=== PATIENT | female | born 1970 | race Caucasian/White ===

== ENCOUNTER → 2020-04-17 07:55 | Outpatient (BNVA) | payer OTHER, SELFPAY | PROVIDERS: Family Provider Nurse Practitioner Family; PCP Nurse Practitioner; Referring Provider Nurse Practitioner; Visit Provider Urology | DX: R31.0 Gross hematuria (principal) | CPT/HCPCS: 80053; 81001 ==

== ENCOUNTER → 2020-05-15 09:18 | Outpatient (BNVA) | payer OTHER, SELFPAY | PROVIDERS: Family Provider Nurse Practitioner Family; PCP Nurse Practitioner; Visit Provider Urology | DX: N30.20 Other chronic cystitis without hematuria (principal); N13.39 Other hydronephrosis; R31.0 Gross hematuria | CPT/HCPCS: 81001 ==

== ENCOUNTER → 2020-06-26 14:09 | Outpatient (BNVA) | payer OTHER, SELFPAY | PROVIDERS: Family Provider Nurse Practitioner Family; PCP Nurse Practitioner; Visit Provider Urology | DX: N30.20 Other chronic cystitis without hematuria (principal) | CPT/HCPCS: 81001 ==

== ENCOUNTER → 2020-07-03 14:27 | Outpatient (BNVA) | payer OTHER, SELFPAY | PROVIDERS: Family Provider Nurse Practitioner Family; PCP Nurse Practitioner; Visit Provider Obstetrics & Gynecology | DX: N93.0 Postcoital and contact bleeding (principal); R10.32 Left lower quadrant pain; N94.10 Unspecified dyspareunia | CPT/HCPCS: 88175 ==

== ENCOUNTER → 2020-07-25 13:07 | Outpatient (BNVA) | payer OTHER, SELFPAY | PROVIDERS: Family Provider Nurse Practitioner Family; PCP Nurse Practitioner; Visit Provider Obstetrics & Gynecology | DX: N83.202 Unspecified ovarian cyst, left side (principal); N84.1 Polyp of cervix uteri | CPT/HCPCS: 76830 ==

== ENCOUNTER → 2020-09-02 11:05 | Outpatient (BNVA) | payer OTHER, SELFPAY | PROVIDERS: Family Provider Nurse Practitioner Family; PCP Nurse Practitioner; Visit Provider Obstetrics & Gynecology | DX: N93.0 Postcoital and contact bleeding (principal) | CPT/HCPCS: 81025; 88305 ==

== ENCOUNTER 2020-09-25 13:53 | Outpatient (CLI) | payer OTHER, SELFPAY ==
[2020-09-25 14:35] LABS: Basophils # 0.1 10^3/uL (0.0-0.1); Basophils % 0.9 %; Eosinophils # 0.3 10^3/uL (0.0-0.8); Eosinophils % 5.1 %; Hemoglobin 11.7 g/dL (11.5-15.3); Lymphocytes # 1.8 10^3/uL (0.8-4.8); Lymphocytes % 27.2 %; Mean Corpuscular HGB Conc 31.6 g/dL (30.0-36.0); Mean Corpuscular Hemoglobin 28.5 pg (28.0-34.0); Mean Platelet Volume 10.2 fL (7.4-10.4); Monocytes # 0.4 10^3/uL (0.2-0.9); Neutrophils # 4.06 10^3/uL (1.8-7.7); Neutrophils % 60.4 %; Nucleated Red Blood Cells % 0 %; Platelet Count 307 10^3/cmm (130-400); Red Blood Count 4.11 10^6/uL (4.1-5.3); Red Cell Distribution Width 12.4 % (12.1-15.1); White Blood Count 6.7 10^3/uL (4.0-10.0)
[2020-09-25 14:54] LABS: Alanine Aminotransferase 16 U/L (0-33); Albumin Level 3.6 g/dL (3.5-5.2); Alkaline Phosphatase 77 IU/L (35-105); Anion Gap 13.6 (5-19); Aspartate Amino Transferase 20 U/L (0-32); Blood Urea Nitrogen 13 mg/dL (6-20); C Reactive Protein 1.1 mg/L (0.0-4.9); Calcium 9.1 mg/dL (8.5-10.5); Carbon Dioxide 26 mmol/L (22-29); Chloride 99 mmol/L (98-107); Globulin 2.9 g/dL (1.3-4.6); Glomerular Filtration Rate 75.9 mL/min (90-130); Glucose 95 mg/dL (65-115); Osmolality Calculated 278 mOsm/kg (285-295); Potassium 4.6 mmol/L (3.5-5.1); Sodium 134 mmol/L (136-145); Total Bilirubin 0.2 mg/dL (0.15-1.2); Total Protein 6.5 g/dL (6.6-8.7)
[2020-09-25 15:59] LABS: Erythrocyte Sedimentation Rate 33 mm/hr (0-15)
== END 2020-09-25 13:54 | disposition home or self-care (01) ==
PROVIDERS: PCP Nurse Practitioner; Visit Provider Surgery
DX: R19.7 Diarrhea, unspecified (principal); R10.9 Unspecified abdominal pain
CPT/HCPCS: 80053; 83630; 85025; 85651; 86140; 87493; 87506

== ENCOUNTER → 2020-10-01 13:22 | Outpatient (BNVA) | payer OTHER, SELFPAY | PROVIDERS: PCP Nurse Practitioner; Visit Provider Urology | DX: N30.20 Other chronic cystitis without hematuria (principal); N13.39 Other hydronephrosis | CPT/HCPCS: 81003; 81025 ==

== ENCOUNTER 2020-10-14 12:52 | Outpatient (CLI) | payer OTHER, SELFPAY ==
--- NOTE | 2020-10-14 13:00 | CT_ITS ---
WS: [id number] CT scan of the abdomen and pelvis with Oral and IV contrast. Additional two-dimensional coronal and s agittal reconstruction was performed. 10/14/2020 Clinical Data: R10.9 - Unspecified abdominal pain Comparison: CT abdomen and pelvis, 01/24/2015 DLP: 1092.[address] scans at [facility] use at least one of these dose optimization techniques: automat ed exposure control; mA and/or kV adjustment per patient size (includes targeted exams where dose is matched to clinical indication); or iterative reconstruction. Findings: The lower lungs show no nodules, masses or effusions. The liver, spleen, adrenal glands and pancreas are normal. There are clips in the gallbladder fossa f rom a cholecystectomy. The kidneys show equal bilateral contrast excretion with bilateral renal cysts and dilated renal pelv es. The largest cyst on the left measures 5.65 cm and is unchanged. The abdominal aorta is normal in size. No appendicitis or diverticulitis is seen. Oral contrast is in the stomach, small bowel and colon, an d there is no bowel dilatation. No evidence of colitis is seen. The bladder is unremarkable. No inguinal hernia is seen. There is an IUD in the uterus. The bones of the lower thorax, lumbar spine, pelvis, and hips are normal. CT/CT abdomen pelvis w con* [id number] Impression: Negative for acute intra-abdominal or pelvic abnormalities.
[2020-10-14] MEDS: iohexol 300 mg/mL 50 mL Btl PO (13:43)
[2020-10-14] MEDS: iohexol 300 mg/mL 100 mL Btl IV (14:40)
== END 2020-10-14 12:53 | disposition home or self-care (01) ==
LOC: RADWPI 13:26
PROVIDERS: PCP Nurse Practitioner; Visit Provider Surgery
DX: R10.9 Unspecified abdominal pain (principal)
CPT/HCPCS: 74177; 76830; Q9967

== ENCOUNTER 2021-02-21 10:40 | Outpatient (CLI) | payer OTHER, SELFPAY ==
--- NOTE | 2021-02-21 10:53 | USCV_ITS ---
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 Dr Ezra Hernandez MD FAC (Electronically Signed) Final Date: 21 February 2021 14:45 S
== END 2021-02-21 10:41 | disposition home or self-care (01) ==
LOC: US 10:43
PROVIDERS: PCP Nurse Practitioner; Visit Provider Nurse Practitioner
DX: I73.9 Peripheral vascular disease, unspecified (principal); M79.604 Pain in right leg; M79.605 Pain in left leg
CPT/HCPCS: 93922

== ENCOUNTER → 2021-11-18 14:57 | Outpatient (BNVA) | payer OTHER, SELFPAY | PROVIDERS: PCP Nurse Practitioner; Referring Provider Specialist; Visit Provider Specialist | DX: G43.811 Other migraine, intractable, with status migrainosus (principal) | CPT/HCPCS: 99204 ==

== ENCOUNTER 2022-02-03 15:02 | Outpatient (CLI) | payer OTHER, SELFPAY ==
--- NOTE | 2022-02-03 15:11 | MR_ITS ---
WS: [id number] MRI BRAIN WITHOUT CONTRAST HISTORY: R51.9 - Headache, unspecified COMPARISON: None available. TECHNIQUE: Diffusion imaging, multiplanar T1, T2 and FLAIR imaging obtained. No evidence for acute infarct or hemorrhage. Galvan-white matter differentiation is normal. No significant atrophy. There are a few scattered T2 and FLAIR signal hyperintensities in the cerebel lum and cerebrum. Several left-sided cerebellar areas of increased signal. Additional prior ischemic changes adjacent to the occipital and temporal horns. Ventricles and extra-axial spaces are normal. No inferior displacement of the cerebellar tonsils. Clivus and pituitary gland are normal. Dural venous sinuses and [place] demonstrate no abnormality on this unenhanced studies. Paranasal sinuses: Clear. Mastoid air cells: Normal. Calvarium and scalp: Intact. MR/MR head wo con* [id number] IMPRESSION: 1. No acute infarct or mass effect. 2. Scattered T2 and FLAIR signal hyperintensities in the LEFT cerebellum and b ilaterally differential includes small vessel ischemic disease and demyelinatin g disease. Follow-up postcontrast MRI evaluation may be helpful to evaluate for enhancement in any of these lesions.
== END 2022-02-03 15:03 | disposition home or self-care (01) ==
LOC: RAD 15:05
PROVIDERS: PCP Nurse Practitioner; Visit Provider Specialist
DX: R51.9 Headache, unspecified (principal)
CPT/HCPCS: 70551

== ENCOUNTER → 2022-02-23 10:29 | Outpatient (BNVA) | payer OTHER, SELFPAY | PROVIDERS: PCP Nurse Practitioner; Visit Provider Specialist | DX: G43.711 Chronic migraine without aura, intractable, with status migrainosus (principal); G37.9 Demyelinating disease of central nervous system, unspecified | CPT/HCPCS: 99214 ==

== ENCOUNTER → 2022-04-14 16:02 | Outpatient (BNVA) | payer OTHER, SELFPAY | PROVIDERS: PCP Nurse Practitioner; Visit Provider Urology | DX: N30.20 Other chronic cystitis without hematuria (principal); N39.41 Urge incontinence | CPT/HCPCS: 81003; 99213 ==

== ENCOUNTER 2022-05-05 08:53 | Outpatient (CLI) | payer OTHER, SELFPAY ==
--- NOTE | 2022-05-05 09:06 | MM_ITS ---
WS: [id number] SCREENING DIGITAL BREAST TOMOSYNTHESIS MAMMOGRAM WITH CAD HISTORY: SCREENING COMPARISON: 02/25/2021, 11/29/2018 Bilateral CC and MLO with tomosynthesis and synthetic mammography submitted. Computer aided detection analyzed. Breast composition: The breasts are heterogeneously dense, which may obscure small masses. Dense fibr oglandular tissue in the upper outer quadrant of the LEFT breast has slowly decreased over time. Ther e is a very subtle area of architectural distortion in the upper outer quadrant of the LEFT breast, 2 -3 o'clock which needs further evaluation. This is best seen on the tomosynthesis images. MM/[place] [id number] IMPRESSION: BI-RADS: 0-Incomplete: Need additional imaging evaluation FOLLOW UP: Need Additional Imaging LEFT breast: Spot compression views (CC and MLO). True ML. Ultrasound to follow if abnormality persists.
== END 2022-05-05 08:54 | disposition home or self-care (01) ==
PROVIDERS: PCP Nurse Practitioner; Visit Provider Nurse Practitioner
DX: Z12.31 Encounter for screening mammogram for malignant neoplasm of breast (principal)
CPT/HCPCS: 77063; 77067

== ENCOUNTER 2022-05-26 12:33 | Outpatient (CLI) | payer OTHER, SELFPAY ==
--- NOTE | 2022-05-26 13:15 | MR_ITS ---
WS: [id number] MRI HEAD WITH CONTRAST TECHNIQUE: Sagittal T1, T2 axial, T2 axial FLAIR, axial susceptibility weighted imaging, axial diffus ion weighted images, and coronal T2 images were obtained. Pre and post-T1 axial and post T1 coronal i mages. ADC and FSPGR images. CLINICAL INFORMATION: G43.711 - Chronic migraine without aura, intractable, wit... COMPARISON: MRI February 03, 2022 FINDINGS: No evidence of restricted diffusion to suggest acute ischemia. Ventricular system and basal cisterns are patent. Stable focus of T2 hyperintensity in the RIGHT parietal white matter. Hazy periventricula r T2 signal abnormality more prominent about the occipital horns. Stable foci of T2 signal abnormalit y LEFT cerebellum. 9 mm hazy focus of signal abnormality about the 4th ventricle. Normal corpus callosum. Normal vascular flow voids at the skull base. No extra-axial fluid collections. No evidence of mass o r mass effect. Paranasal sinuses and mastoid air cells well aerated. Normal orbits. No hemosiderin on the susceptibly weighted images. Normal optic chiasm and pituitary infundibulum. Te mporal lobes and hippocampal formations are normal in appearance. No abnormal gadolinium enhancement. No enhancing intracranial lesions. Normal posterior nasopharynx. Normal dural venous sinuses. Normal dural venous sinuses. MR/MR head wo/w con [id number] IMPRESSION: 1. No evidence of restricted diffusion to suggest acute ischemia. 2. Stable small focus of T2 hyperintensity in the RIGHT parietal periventricul ar white matter with hazy signal normality about the occipital horns. Stable in fratentorial LEFT cerebellar patchy foci. 3. Findings are nonspecific in a patient this age but can be seen with hyperte nsion, diabetes, migraine headaches, and demyelinating disease. Periventricular lesion about the 4th ventricle in particular is suspicious for demyelinating d isease but nonspecific. 4. No abnormal gadolinium enhancement. 5. No hemosiderin on susceptibly weighted images. 6. No significant parenchymal volume loss. 7. No significant changes compared to previous.
[2022-05-26] MEDS: gadobenate dimeglumine 5 mL vial IV (13:55)
== END 2022-05-26 12:34 | disposition home or self-care (01) ==
PROVIDERS: PCP Nurse Practitioner; Visit Provider Specialist
DX: G43.711 Chronic migraine without aura, intractable, with status migrainosus (principal); G37.9 Demyelinating disease of central nervous system, unspecified
CPT/HCPCS: 70553

== ENCOUNTER → 2022-05-27 10:17 | Outpatient (BNVA) | payer OTHER, SELFPAY | PROVIDERS: PCP Nurse Practitioner; Visit Provider Specialist | DX: Z77.22 Contact with and (suspected) exposure to environmental tobacco smoke (acute) (chronic) (principal); G43.711 Chronic migraine without aura, intractable, with status migrainosus; G37.9 Demyelinating disease of central nervous system, unspecified | CPT/HCPCS: 99214 ==

== ENCOUNTER 2022-05-29 08:56 | Outpatient (CLI) | payer OTHER, SELFPAY ==
--- NOTE | 2022-05-29 | US_ITS ---
ADDITIONAL VIEWS LEFT MAMMOGRAM with tomosynthesis. LEFT BREAST ULTRASOUND HISTORY: ABNORMAL MAMMO COMPARISON: 05/05/2022 and 02/26/200020/11 and 12/06/2019 LEFT MAMMOGRAM: Spot compression views and true ML with tomosynthesis and sympathetic mammography. The asymmetry nearly completely resolves in the upper outer quadrant. The area of distortion becomes less apparent but there is still dense fibroglandular tissue. No discrete mass. LEFT BREAST ULTRASOUND 2-D and color Doppler imaging submitted. Ultrasound directed to the upper outer quadrant of the LEFT breast. Very dense fibroglandular tissue is identified. There is no solid mass or shadowing. No evidence for distortion or skin thickening. IMPRESSION: BI-RADS: 2-Benign FOLLOW UP: 1 Year Follow-up MAIDA
--- NOTE | 2022-05-29 09:05 | MM_ITS ---
WS: [id number] ADDITIONAL VIEWS LEFT MAMMOGRAM with tomosynthesis. LEFT BREAST ULTRASOUND HISTORY: ABNORMAL MAMMO COMPARISON: 05/05/2022 and 02/26/200020/11 and 12/06/2019 LEFT MAMMOGRAM: Spot compression views and true ML with tomosynthesis and sympathetic mammography. The asymmetry nearly completely resolves in the upper outer quadrant. The area of distortion becomes less apparent but there is still dense fibroglandular tissue. No discrete mass. LEFT BREAST ULTRASOUND 2-D and color Doppler imaging submitted. Ultrasound directed to the upper outer quadrant of the LEFT breast. Very dense fibroglandular tissue is identified. There is no solid mass or shadowing. No evidence for distortion or skin thickening. MM/[place] [id number] IMPRESSION: BI-RADS: 2-Benign FOLLOW UP: 1 Year Follow-up
== END 2022-05-29 08:57 | disposition home or self-care (01) ==
PROVIDERS: PCP Nurse Practitioner; Visit Provider Nurse Practitioner
DX: R92.8 Other abnormal and inconclusive findings on diagnostic imaging of breast (principal)
CPT/HCPCS: 76642; 77061

== ENCOUNTER → 2022-08-20 14:59 | Outpatient (BNVA) | payer OTHER, SELFPAY | PROVIDERS: PCP Nurse Practitioner; Visit Provider Nurse Practitioner Women's Health | DX: E78.00 Pure hypercholesterolemia, unspecified (principal); N93.9 Abnormal uterine and vaginal bleeding, unspecified; N88.8 Other specified noninflammatory disorders of cervix uteri | CPT/HCPCS: 84443; 84702; 85025; 88305 ==

== ENCOUNTER 2022-08-27 10:08 | Outpatient (CLI) | payer OTHER, SELFPAY ==
[2022-08-27 15:34] LABS: HCG Quantitative 8.27 mIU/mL
== END 2022-08-27 10:09 | disposition home or self-care (01) ==
LOC: LAB 10:11
PROVIDERS: PCP Nurse Practitioner; Visit Provider Nurse Practitioner Women's Health
DX: Z32.00 Encounter for pregnancy test, result unknown (principal)
CPT/HCPCS: 36415; 84702

== ENCOUNTER → 2022-08-31 13:47 | Outpatient (BNVA) | payer OTHER, SELFPAY | PROVIDERS: PCP Nurse Practitioner; Visit Provider Nurse Practitioner Women's Health | DX: N93.9 Abnormal uterine and vaginal bleeding, unspecified (principal) | CPT/HCPCS: 76830; 82670; 83001; 84702 ==

== ENCOUNTER 2022-10-14 09:11 | Day surgery (SDC) | payer OTHER, SELFPAY ==
[2022-10-12 08:10] VITALS: BMI 25.7
--- NOTE | 2022-10-12 08:29 | ANES.PREANE2 ---
Pre-Anesthetic Assessment Height/Weight: Height 1.63 m Weight 68.039 kg Operation Date: 10/14/22 10:45 Proposed Procedures p Hysteroscopy, dilation and curettage with Myosure 08235, 74466,24816 N95.0(Not Applicable) - Tab Gabriel MD s Dilation And Curettage (D&C)(Not Applicable) - Tab Gabriel MD Familial anesthetic complications: PONV - Scopolamine patch helped Social No alcohol and No tobacco Exam alert, oriented x 3, clear to auscultation bilaterally and regular rate & rhythm Airway Mallampati: Class II Dentition: other (crowns, missing tooth) Pulmonary Asthma hydronephrosis on losartan GI Gastroesophageal Reflux Disease ibs Anesthetic Plan ASA status: 3 Anesthesia: General Risk of > 500 ml blood loss (7ml/kg in children): No Medications/Allergies Home Medications Medication Instructions Recorded Confirmed Last Taken Type cholecalciferol (vitamin D3) 50 50 mcg PO DAILY 04/17/20 10/12/22 10/11/22 History mcg (2,000 unit) capsule ferrous fumarate 325 mg (106 mg 325 mg PO DAILY 04/17/20 10/12/22 10/10/22 History iron) tablet omeprazole 20 mg capsule,delayed 20 mg PO DAILY 04/17/20 10/12/22 10/10/22 History release albuterol sulfate 90 mcg/actuation 2 puff inhalation Q6H PRN 07/03/20 10/12/22 10/09/22 History aerosol inhaler (ProAir HFA) Shortness Of Breath losartan 50 mg-hydrochlorothiazide 1 tab PO DAILY 11/12/21 10/12/22 10/12/22 07:00 History 12.5 mg tablet azelastine 137 mcg (0.1 %) nasal 1 spray intranasal ONCE PRN 04/14/22 10/12/22 10/11/22 History spray aerosol Allergy Symptoms magnesium glycinate 200 mg PO DAILY 04/14/22 10/12/22 10/11/22 History polyethylene glycol 3350 17 gram 17 g PO DAILY PRN Constipation 04/14/22 10/12/22 09/21/22 History oral powder packet (Miralax) zinc 50 mg tablet 50 mg PO DAILY PRN Congestion 04/14/22 10/12/22 Unknown History amitriptyline 10 mg tablet 10 mg PO DAILY #30 tabs 05/27/22 10/12/22 10/08/22 Rx aspirin 81 mg tablet,delayed 81 mg PO DAILY 09/08/22 10/12/22 10/05/22 History release (Adult Aspirin Regimen) Allergies Allergy/AdvReac Type Severity Reaction Status Date / Time Corticosteroids Allergy Rash Verified 10/12/22 08:05 (Glucocorticoids) prednisone Allergy ALGY-Rash Verified 10/12/22 08:05 [facility] Anesthesia Medical History Asthma Diagnosed in 1999 and well-controlled with medication Chronic cystitis Hydronephrosis Chronic with no evidence of obstruction on multiple Lasix renogram -Follows up with Dr. 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 Cox. Hypercholesteremia Diagnosed in 2009 and controlled with medications managed by PMD Left flank pain Extensive work-up including 2 Lasix renogram's showing mild dilation but no evidence of obstruction. Pain more typical for musculoskeletal source based on its features. 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 No evidence of symptoms related to it. Urgency incontinence Surgical History H/O elbow surgery 2015 for right-sided tennis elbow H/O eye surgery 2004-LASIK surgery bilaterally H/O knee surgery 2004-right knee arthroscopic S/P cholecystectomy 2017-laparoscopic procedure by Dr. Luis Family History Father Hypertension Hyperlipidemia Mother Diabetes Hypertension Heart disease Brother Diabetes Grandmother Ovarian cancer paternal, diagnosed in her 80s Denies family history of Colon cancer Breast cancer Uterine cancer Thyroid condition Stroke Social History Smoking and tobacco status: never smoked Data Anesthesia Cardiac Studies: No Data to Display
[2022-10-14] VITALS (11 sets, daily range): BP systolic 111–155; BP diastolic 64–97; PULSE 86–106; RESP 16–20; TEMP 36.4–37.1; O2SAT 98–100
[2022-10-14] MEDS: scopolamine 1.5 Patch 1 PATCH TRANSDERMA (09:39)
[2022-10-14 09:44] LABS: OR HCG Qualitative Urine Negative (Negative)
--- NOTE | 2022-10-14 09:51 | P.ANESUD_ITS ---
Pre-Anesthetic Update Pre-Anesthetic Assessment: Date of Surgery/Procedure: 10/14/22 Preop Malika gnosis: Postmenopausal bleeding & endocervical polyp Proposed Procedure: Operation Date: 10/14/22 10:45 Proposed Procedures p Hysteroscopy, dilation and curettage with Myosure 61977, 20261,21866 N95.0(Not Applicable) - Tab Gabriel MD s Dilation And Curettage (D&C)(Not Applicable) - Tab Gabriel MD Any changes to Pre-Anesthetic Assessment?: No Last Intake: Intake Last Liquid Date 10/13/22 Last Liquid Time 17:30 Last Solid Date 10/13/22 Last Solid Time 17:30 Vitals: Temperature 98.8 F 10/14/22 09:22 Temperature Source Temporal Artery S can 10/14/22 09:22 Pulse Rate 106 H 10/14/22 09:22 Respiratory Rate 17 10/14/22 09:22 Blood Pressure 123/97 10/14/22 09:22 Blood Pressure Ana n 105 10/14/22 09:22 Pulse Oximetry 98 10/14/22 09:22 Oxygen Delivery Me thod 10/14/22 09:25 Exam: Pre-Anes Outpt Exam: alert, oriented x 3, clear to auscultation bilaterally and regular rate & rhythm Cardiac Studies: No Data to Display
[2022-10-14] MEDS: sodium chloride 0.9% 1,000 ML 30 ML IV (09:55)
--- NOTE | 2022-10-14 09:56 | W.PM.OPSUD ---
Surgery/Procedure H&P Update DATE OF PROCEDURE: October 14, 2022 DATE H&P PERFORMED: 10/12/22 H&P UPDATE INFORMATION: I have reviewed H&P completed within last 30 days, I have examined patient prior to procedure and No changes to prior documentation PREOP DIAGNOSIS: Postmenopausal bleeding & endocervical polyp PLANNED PROCEDURE: Operation Date: 10/14/22 10:45 Proposed Procedures p Hysteroscopy, dilation and curettage with Myosure 63906, 47219,40270 N95.0(Not Applicable) - Tab Gabriel MD s Dilation And Curettage (D&C)(Not Applicable) - Tab Gabriel MD
[2022-10-14 10:02] LABS: Basophils % 0.6 %; Eosinophils # 0.2 10^3/uL (0.0-0.8); Hematocrit 39.5 % (37.0-47.0); Hemoglobin 12.8 g/dL (11.5-15.3); Lymphocytes # 1.6 10^3/uL (0.8-4.8); Lymphocytes % 23.7 %; Mean Corpuscular HGB Conc 32.4 g/dL (30.0-36.0); Mean Corpuscular Hemoglobin 28.7 pg (28.0-34.0); Mean Corpuscular Volume 88.6 fl (81-99); Mean Platelet Volume 10.2 fL (7.4-10.4); Monocytes # 0.3 10^3/uL (0.2-0.9); Monocytes % 4.5 %; Neutrophils # 4.48 10^3/uL (1.8-7.7); Neutrophils % 67.7 %; Nucleated Red Blood Cells % 0 %; Platelet Count 330 10^3/cmm (130-400); Red Blood Count 4.46 10^6/uL (4.1-5.3); Red Cell Distribution Width 12.9 % (12.1-15.1); White Blood Count 6.6 10^3/uL (4.0-10.0)
[2022-10-14 10:22] LABS: Alanine Aminotransferase 34 U/L (0-33); Albumin Level 4.3 g/dL (3.5-5.2); Alkaline Phosphatase 111 U/L (35-105); Anion Gap 15.5 (5-19); Aspartate Amino Transferase 28 U/L (0-32); Blood Urea Nitrogen 13 mg/dL (6-20); Calcium 9.9 mg/dL (8.5-10.5); Carbon Dioxide 25 mmol/L (22-29); Chloride 103 mmol/L (98-107); Globulin 3.4 g/dL (1.3-4.6); Glomerular Filtration Rate 65.5 mL/min (90-130); Glucose 85 mg/dL (65-115); Osmolality Calculated 287 mOsm/kg (285-295); Potassium 4.5 mmol/L (3.5-5.1); Sodium 139 mmol/L (136-145); Total Bilirubin 0.3 mg/dL (0.15-1.2); Total Protein 7.7 g/dL (6.6-8.7)
[2022-10-14 11:12] LABS: Add Urine Microscopic? YES; Bilirubin Urine Neg (Negative); Blood Urine 3+ (Negative); Glucose Urine UA Norm (Normal); Ketones Urine Negative (Negative); Leukocyte Esterase Urine 1+ (Negative); Nitrate Urine Negative (Negative); Protein Urine 2+ (Negative); Specific Gravity, Urine 1.005 (1.005-1.030); Urine Appearance Hazy (CLEAR); Urine Color Yellow (Yellow); Urobilinogen Urine Neg (Negative); pH Urine 7 (5-7)
[2022-10-14 11:14] LABS: Add Urine Culture? Yes; RBC Urine 40-50 /hpf (0-2); Squamous Epithelial Cell Urine 0-4 /hpf (0-5); WBC Urine RARE /hpf (0-5)
[2022-10-14] MEDS: ceFAZolin 2,000 MG in sodium chloride 0.9% (plus) 50 ML 100 MG IV (11:23)
--- NOTE | 2022-10-14 12:07 | PM.OP ---
Operative Report Date of procedure: October 14, 2022 Pre-op diagnosis: Preop Diagnosis Postmenopausal bleeding & endocervical polyp Post-op diagnosis: Postmenopausal bleeding. Endometrial polyp Post-op findings: Endometrial polyp attached to the anterior endometrial wall. Procedure done: Hysteroscopy. Polypectomy via MyoSure Specimens removed/disposition: Endometrial polyp Surgeon: Tab Gabriel MD Estimated blood loss (mL): 5 IV fluids (mL): 500 Complications: None Findings: Endometrial polyp Brief History: Mrs. Connolly 52-year-old female with postmenopausal bleeding. Ultrasound suggesting of polyp. Procedure: After informed consent, the risks included but were not limited to bleeding, infection, injury to internal organs. The patient was counseled on a possible laparotomy and on the potential need for hysterectomy. The patient expressed understanding of the risks involved, all questions were answered, and the patient consented to the procedure. The patient was taken to the operating room where general anesthesia was administered. She was placed in the dorsal lithotomy position and prepped and draped in sterile fashion. A time out procedure was performed. The patient was examined under anesthesia and found to have a normal uterus with normal adnexa. A sterile weight speculum was placed in the vagina. The uterus was then gently sounded to 7 cm, and the cervix was dilated. The 0 degrees MyoSure hysteroscope was advanced gently to the uterine fundus while visualizing the monitor. Survey of the uterine cavity showed: Endometrial polyp on anterior wall, the fundus shows atrophic endometrium; left ostium was visualized, and lateral wall with atrophic in the mid; right ostium visualized, and lateral wall with atrophic in the mid; anterior and posterior deleon are with atrophic endometrium; endocervical canal is normal. The MyoSure device was advanced and the direct visualization the polyp was morcellated without complication. At the end of morcellation the fluid deficit was 70 mL and was estimated at approximately 50 mL were on the floor. There was minimal bleeding noted and the tenaculum removed with goad hemostasis noted. The patient tolerated the procedure well. The patient was taken to the recovery area in stable condition.
[2022-10-14] MEDS: ketorolac 30 mg/mL INJ 15 MG IVP (12:26)
--- NOTE | 2022-10-14 16:35 | ANE.PACU2 ---
Inpatient post-anesthesia follow up: Airway intact: Yes Vital signs: Temperature 97.8 F Pulse Rate 86 Respiratory Rate 18 Blood Pressure 148/77 Pulse Oximetry 100 Oxygen Delivery Me thod Room Air Oxygen Flow Rate Fraction of Inspir ed Oxygen Hydration adequate: Yes Nausea and vomiting: No Pain level: 1 Mental status: Baseline
== END 2022-10-14 13:43 | disposition home or self-care (01) ==
PROVIDERS: PCP Nurse Practitioner; Visit Provider Obstetrics & Gynecology
PROC: 0UDB8ZZ Extraction of Endometrium, Via Natural or Artificial Opening Endoscopic (ICD-10-PCS; CPT 58558; principal; 2022-10-14 10:35)
PROC: (CPT 58120; 2022-10-14 10:35)
DX: N95.0 Postmenopausal bleeding (principal); N84.1 Polyp of cervix uteri; K21.9 Gastro-esophageal reflux disease without esophagitis; Z79.82 Long term (current) use of aspirin; E78.00 Pure hypercholesterolemia, unspecified
CPT/HCPCS: 58558; 36415; 80053; 81001; 81025; 84703; 85025; 86850; 86900; 87077; 87086; 87186; 88305; J0690; J1885; J2405; J2704; J3010; J7030

== ENCOUNTER → 2022-10-21 08:21 | Outpatient (BNVA) | payer OTHER, SELFPAY | PROVIDERS: PCP Nurse Practitioner; Visit Provider Specialist | DX: G43.709 Chronic migraine without aura, not intractable, without status migrainosus (principal) | CPT/HCPCS: 99212 ==

== ENCOUNTER → 2022-11-04 14:45 | Outpatient (BNVA) | payer OTHER, SELFPAY | PROVIDERS: PCP Nurse Practitioner; Visit Provider Nurse Practitioner Women's Health | DX: R30.0 Dysuria (principal) | CPT/HCPCS: 81000; 87086 ==

== ENCOUNTER → 2023-01-12 10:30 | Outpatient (BNVA) | payer OTHER, SELFPAY | PROVIDERS: PCP Nurse Practitioner; Visit Provider Obstetrics & Gynecology | DX: N95.0 Postmenopausal bleeding (principal) | CPT/HCPCS: 76830 ==

== ENCOUNTER 2023-07-13 10:51 | Outpatient (CLI) | payer OTHER, SELFPAY ==
--- NOTE | 2023-07-13 10:53 | MM_ITS ---
WS: [id number] VIEWS: MLO and CC views both breasts. 3D digital tomosynthesis is also included in this exam. Comparison made with prior exam of 10/12/2017, 11/29/2018, 12/06/2019, 02/25/2021, 05/05/2022.. Findings: No sign of suspicious mass, tumor calcification or architectural distortion in either breast. A 7 mm ovoid nodule with fatty hilum seen in the anterior upper outer quadrant of the RIGHT breast probably an intramammary lymph node. This is seen only on the cc views and seen best on the tomograms. A 6-mon th follow-up RIGHT mammogram with tomography would be recommended for follow-up. The breasts are hete rogeneously dense which may obscure small masses. Impression: MM/[place] [id number] BI-RADS: 3-Probably Benign FOLLOW-UP: 6 Month Follow-up This mammogram was also analyzed by the Computer Aided Detection System [employer].
== END 2023-07-13 10:52 | disposition home or self-care (01) ==
LOC: MOBLMAM 10:51
PROVIDERS: PCP Nurse Practitioner; Visit Provider Nurse Practitioner
DX: Z12.31 Encounter for screening mammogram for malignant neoplasm of breast (principal)
CPT/HCPCS: 77063; 77067

== ENCOUNTER → 2023-10-20 11:05 | Outpatient (BNVA) | payer OTHER, SELFPAY | PROVIDERS: PCP Nurse Practitioner; Visit Provider Specialist | DX: G43.711 Chronic migraine without aura, intractable, with status migrainosus (principal) | CPT/HCPCS: 99213 ==

== ENCOUNTER → 2023-12-08 15:10 | Outpatient (BNVA) | payer OTHER, SELFPAY | PROVIDERS: PCP Nurse Practitioner; Referring Provider Nurse Practitioner; Visit Provider Nurse Practitioner Women's Health | DX: N95.0 Postmenopausal bleeding (principal); Z01.419 Encounter for gynecological examination (general) (routine) without abnormal findings; N95.1 Menopausal and female climacteric states | CPT/HCPCS: 87624 ==

== ENCOUNTER → 2023-12-27 12:31 | Outpatient (BNVA) | payer OTHER, SELFPAY | PROVIDERS: PCP Nurse Practitioner; Visit Provider Nurse Practitioner Women's Health | DX: N95.0 Postmenopausal bleeding (principal) | CPT/HCPCS: 76830 ==

== ENCOUNTER 2024-01-13 10:20 | Outpatient (CLI) | payer OTHER, SELFPAY ==
--- NOTE | 2024-01-13 10:24 | MM_ITS ---
WS: [id number] RIGHT 3D TOMOSYNTHESIS DIGITAL MAMMOGRAPHY WITH CAD CLINICAL INFORMATION: 6MFU ABNORMAL MAMMO HISTORY: 6-month follow-up COMPARISON: 07/13/2023 TECHNIQUE: 3 views of the right breast were obtained. FINDINGS: Scattered fibroglandular densities of the right breast. Again seen is a 6 mm nodule upper outer RIGHT breast best seen on the cc view. This is unchanged compared to previous. Ultrasound is pending. ULTRASOUND BREAST RIGHT TECHNIQUE: Ultrasound right breast focused area of concern. CLINICAL INFORMATION: 6MFU ABNORMAL MAMMO FINDINGS: Ultrasound RIGHT breast upper outer quadrant. Small lymph node is visualized in the upper outer quadr ant at the 11 o'clock position 2 cm from the nipple likely corresponding to the ovoid nodule seen on the mammogram. This measures approximately 6 x 4 x 3 mm with normal fatty hilum. No other suspicious abnormalities. No suspicious lesions to target for biopsy. Recommend return to annual screening mammo graphy. IMPRESSION: MM/[place] [id number] BI-RADS: 2-Benign FOLLOW UP: 1 Year Follow-up Recommend return to annual screening mammography.
== END 2024-01-13 10:21 | disposition home or self-care (01) ==
LOC: RAD 10:20
PROVIDERS: PCP Nurse Practitioner; Visit Provider Nurse Practitioner
DX: R92.321 Mammographic fibroglandular density, right breast (principal)
CPT/HCPCS: 76642; 77061; G0279

== ENCOUNTER 2024-08-17 15:57 | Outpatient (CLI) | payer OTHER, SELFPAY ==
[2024-08-17 16:48] LABS: Bilirubin Urine Negative (Negative); Blood Urine 2+ (Negative); Glucose Urine UA 2+ (Normal); Ketones Urine Negative (Negative); Leukocyte Esterase Urine Negative (Negative); Nitrate Urine Negative (Negative); Protein Urine 1+ (Negative); Specific Gravity, Urine 1.003 (1.005-1.030); Urine Appearance Clear (CLEAR); Urine Color Yellow (Yellow); Urobilinogen Urine 0.2 mg/dL (Negative); pH Urine 5.5 (5-7)
[2024-08-17 16:53] LABS: Bacteria Urine None Seen /hpf; Hyaline Casts Urine 0-4 /lpf; Squamous Epithelial Cell Urine 0-5 /hpf (0-5); WBC Urine 0-5 /hpf (0-5)
[2024-08-17 16:59] LABS: Add Urine Culture? Yes
[2024-08-17 17:40] LABS: Anion Gap 14.8 (5-19); Blood Urea Nitrogen 18 mg/dL (6-20); Calcium 9.1 mg/dL (8.5-10.5); Carbon Dioxide 25 mmol/L (22-29); Chloride 101 mmol/L (98-107); Glomerular Filtration Rate 65.2 mL/min (90-130); Glucose 117 mg/dL (65-115); Phosphorus 4.4 mg/dL (2.5-4.5); Potassium 3.8 mmol/L (3.5-5.1); Sodium 137 mmol/L (136-145)
[2024-08-17 18:00] LABS: Creatinine Urine, Random 16 mg/dL (28-217); Microalbumin Random Urine 16 ug/dL (0-20)
[2024-08-17 18:03] LABS: Microalbum Creatinine Ratio Ur 1000 mg/dL (0-20)
== END 2024-08-17 15:58 | disposition home or self-care (01) ==
LOC: LAB 15:59
PROVIDERS: PCP Nurse Practitioner; Visit Provider Registered Nurse
DX: N18.2 Chronic kidney disease, stage 2 (mild) (principal); R80.1 Persistent proteinuria, unspecified
CPT/HCPCS: 36415; 80069; 81001; 82044

== ENCOUNTER 2024-10-26 14:16 | Outpatient (CLI) | payer OTHER, SELFPAY ==
--- NOTE | 2024-10-26 14:19 | MR_ITS ---
WS: [id number] MRI HEAD WITH CONTRAST TECHNIQUE: Sagittal T1, T2 axial, T2 axial FLAIR, axial susceptibility weighted imaging, axial diffus ion weighted images, and coronal T2 images were obtained. Pre and post-T1 axial and post T1 coronal i mages. ADC and FSPGR images. CLINICAL INFORMATION: FREQUENT MIGRAINE, TYPICALLY R SIDE COMPARISON: MRI 2021 FINDINGS: No evidence of restricted diffusion to suggest acute ischemia. Ventricular system and basal cistern s are patent. Mild patchy supratentorial white matter changes appear stable compared to 2021. Few pat shari lesions in the LEFT cerebellum similar in appearance. No new lesions. Normal vascular flow voids at the skull base. No extra-axial fluid collections. No evidence of mass o r mass effect. Paranasal sinuses and mastoid air cells are well aerated. Normal posterior nasopharynx . No hemosiderin on the susceptibly weighted images. Normal optic chiasm and pituitary infundibulum. No abnormal gadolinium enhancement. No other acute findings. MR/MR head wo/w con [id number] IMPRESSION: 1. No evidence of restricted diffusion to suggest acute ischemia. 2. Mild patchy supratentorial white matter changes appear stable compared to p revious. 3. Stable small T2 hyperintense foci in the LEFT cerebellum and about the four th ventricle. 4. No abnormal gadolinium enhancement. 5. Overall no significant changes compared to previous.
[2024-10-26] MEDS: gadobenate dimeglumine 20 mL vial 14 ML IV (15:01)
== END 2024-10-26 14:17 | disposition home or self-care (01) ==
LOC: RAD 14:17
PROVIDERS: PCP Nurse Practitioner; Visit Provider Nurse Practitioner
DX: G93.89 Other specified disorders of brain (principal); G43.709 Chronic migraine without aura, not intractable, without status migrainosus
CPT/HCPCS: 70553

== ENCOUNTER 2024-12-13 10:46 | Outpatient (CLI) | payer OTHER, SELFPAY ==
--- NOTE | 2024-12-13 11:40 | MM_ITS ---
WS: [email or web address] BILATERAL 3D TOMOSYNTHESIS DIGITAL SCREENING MAMMOGRAPHY WITH CAD CLINICAL INFORMATION: SCREENING HISTORY: Screening mammogram. No current complaints. COMPARISON: 2023 TECHNIQUE: Bilateral CC and MLO views. FINDINGS: The breasts are composed of heterogeneous fibroglandular density tissue, which can limit the detection of small underlying mass lesions. No suspicious mass, asymmetry, calcifications, or architectural distortion. No evidence of malignancy. Incidental punctate and lucent centered calcifications. MM/MM [facility] tomosynthesis [id number] IMPRESSION: DENSITY: The breasts are heterogeneously dense, which may obscure small masses. BI-RADS: 2 - Benign FOLLOW UP: 1 Year Follow-up Recommend return to annual screening mammography.
== END 2024-12-13 10:47 | disposition home or self-care (01) ==
PROVIDERS: PCP Nurse Practitioner; Visit Provider Nurse Practitioner
DX: Z12.31 Encounter for screening mammogram for malignant neoplasm of breast (principal); R92.333 Mammographic heterogeneous density, bilateral breasts; R92.1 Mammographic calcification found on diagnostic imaging of breast
CPT/HCPCS: 77063; 77067

== ENCOUNTER 2025-01-18 10:34 | Outpatient (CLI) | payer OTHER, SELFPAY ==
[2025-01-18 11:37] LABS: Basophils % 0.7 %; Eosinophils # 0.3 10^3/uL (0.0-0.8); Eosinophils % 5.5 %; Hematocrit 37.7 % (36-47); Lymphocytes # 1.5 10^3/uL (0.8-4.8); Lymphocytes % 28.1 %; Mean Corpuscular HGB Conc 31.8 g/dL (30-55); Mean Corpuscular Hemoglobin 28.5 pg (27-33); Mean Corpuscular Volume 89.5 fl (85-98); Mean Platelet Volume 10.4 fL (7.4-10.4); Monocytes # 0.3 10^3/uL (0.2-0.9); Monocytes % 5.8 %; Neutrophils # 3.26 10^3/uL (1.8-7.7); Neutrophils % 59.4 %; Nucleated Red Blood Cells % 0 %; Platelet Count 296 10^3/cmm (157-399); Red Blood Count 4.21 10^6/uL (3.85-5.65); Red Cell Distribution Width 13.1 % (12.1-15.1); White Blood Count 5.49 10^3/uL (3.29-11.43)
[2025-01-18 11:57] LABS: Creatinine Urine, Random 23 mg/dL (28-217)
[2025-01-18 12:01] LABS: Albumin Level 4.1 g/dL (3.5-5.2); Anion Gap 13.9 (5-19); Blood Urea Nitrogen 16 mg/dL (6-20); Calcium 9.5 mg/dL (8.5-10.5); Carbon Dioxide 26 mmol/L (22-29); Chloride 103 mmol/L (98-107); Glomerular Filtration Rate 86.9 mL/min (90-130); Glucose 81 mg/dL (65-115); Potassium 3.9 mmol/L (3.5-5.1); Sodium 139 mmol/L (136-145)
[2025-01-18 12:07] LABS: Calcium 9.4 mg/dL (8.5-10.5); Parathyroid Hormone 31.4 pg/mL (15-65)
[2025-01-18 12:19] LABS: Microalbum Creatinine Ratio Ur 1913 mg/dL (0-20); Microalbumin Random Urine 44 ug/dL (0-20)
== END 2025-01-18 10:35 | disposition home or self-care (01) ==
LOC: LAB 10:35
PROVIDERS: PCP Nurse Practitioner; Visit Provider Registered Nurse
DX: N18.2 Chronic kidney disease, stage 2 (mild) (principal)
CPT/HCPCS: 36415; 80069; 82044; 82310; 83970; 85025

== ENCOUNTER → 2025-01-24 11:25 | Outpatient (BNVA) | payer OTHER, SELFPAY | PROVIDERS: PCP Nurse Practitioner; Visit Provider Nurse Practitioner Women's Health | DX: N95.1 Menopausal and female climacteric states (principal) | CPT/HCPCS: 82670; 83001 ==

== ENCOUNTER 2025-07-04 14:19 | Outpatient (CLI) | payer OTHER, SELFPAY ==
[2025-07-04 14:57] LABS: Hematocrit 33.7 % (36-47); Hemoglobin 11.20 g/dL (11.27-16.99); Mean Corpuscular HGB Conc 33.2 g/dL (30-55); Mean Corpuscular Hemoglobin 29.4 pg (27-33); Mean Corpuscular Volume 88.5 fl (85-98); Nucleated Red Blood Cells % 0 %; Platelet Count 366 10^3/cmm (157-399); Red Blood Count 3.81 10^6/uL (3.85-5.65); White Blood Count 9.49 10^3/uL (3.29-11.43)
[2025-07-04 15:14] LABS: Glucose Urine UA Negative (Normal); Nitrate Urine Negative (Negative); Specific Gravity, Urine 1.005 (1.005-1.030)
[2025-07-04 15:17] LABS: Albumin Level 3.8 g/dL (3.5-5.2); Anion Gap 15.5 (5-19); Blood Urea Nitrogen 12 mg/dL (6-20); Calcium 9.2 mg/dL (8.5-10.5); Carbon Dioxide 27 mmol/L (22-29); Chloride 94 mmol/L (98-107); Glucose 86 mg/dL (65-115); Potassium 4.5 mmol/L (3.5-5.1); Sodium 132 mmol/L (136-145)
[2025-07-04 15:29] LABS: Calcium 9.3 mg/dL (8.5-10.5)
[2025-07-04 15:43] LABS: Creatinine Urine, Random 38 mg/dL (28-217)
[2025-07-04 15:55] LABS: Microalbum Creatinine Ratio Ur 1053 mg/dL (0-20)
== END 2025-07-04 14:20 | disposition home or self-care (01) ==
LOC: LAB 14:21
PROVIDERS: PCP Nurse Practitioner; Visit Provider Internal Medicine Nephrology
DX: N18.2 Chronic kidney disease, stage 2 (mild) (principal)
CPT/HCPCS: 36415; 80069; 81001; 82044; 82310; 83970; 85025; 87086

== ENCOUNTER 2025-07-30 10:16 | Outpatient (CLI) | payer OTHER, SELFPAY ==
--- NOTE | 2025-07-30 10:26 | CT_ITS ---
WS: [id number] CT ABDOMEN AND PELVIS WITH CONTRAST HISTORY: BILATERAL HYDRONEPHROSIS TECHNIQUE: Imaging performed of the abdomen and pelvis with IV contrast. Single phase imaging of the abdomen. Coronal and sagittal reformats are submitted. All CT scans at [facility] use at least one of these dose optimization techniques: automated exposure control; mA and/or kV adjustment per patient size (includes targeted exams where dose is matched to clinical indication); or iterative reconstruction. IV CONTRAST: Omnipaque 350; 100 mL IV. Oral contrast: No DLP: 365.09 mGy.cm COMPARISON: 10/14/2020, 01/24/2015 Lower thorax: Lung bases are clear. Heart is normal size. No hiatal hernia. Liver/biliary system: Normal size with no intrahepatic dilatation. Gallbladder: Prior cholecystectomy. Pancreas: Normal size pancreas and pancreatic duct. No adjacent inflammation. Spleen: Normal size spleen. No mass or infarct. Adrenal glands: Normal. Right kidney: Normal size kidney. There are a few tiny cortical cysts. No solid mass identified. There is a small extrarenal pelvis. No calyceal dilatation. Very similar in appearance over prior studies including 2019 and 2014. The RIGHT ureter is not dilated. Left kidney: Normal size LEFT kidney. There is a large cyst from the lower pole measuring 5.2 x 4.6 cm. There is an additional smaller cortical cyst in the mid kidney. There is a large extrarenal pelvis. This extrarenal pelvis has been present on the prior study. There is also mild calyceal dilatation which has been present. Suspect there is probably a mild UP junction obstruction but no progression over time. Aorta: Mild atherosclerosis with no aneurysm. Lymphadenopathy: None. Free fluid: None. GI tract: Nondistended stomach. No small bowel obstruction. No colon obstruction. Retrocecal appendix is normal. Abdominal wall: Unremarkable abdominal wall. No hernia. Pelvis: No free fluid or adenopathy within the pelvis. Hyperdense foreign body in the pelvis is probably a surgical clip between the bladder and the posterior uterus. Bones: Unremarkable. CT/CT abdomen pelvis w con* [id number] IMPRESSION: 1. Large LEFT extrarenal pelvis with mild calyceal dilatation is similar to pr ior studies from 2019 and 2014. With the calyceal dilatation suspect there is i s very mild LEFT UPJ obstruction. Mild obstruction has not progressed. There is no cortical thinning or renal atrophy associated with the LEFT kidney. 2. Small extrarenal pelvis on the RIGHT with no calyceal dilatation. 3. Bilateral renal cysts. 4. Prior cholecystectomy. 5. No ascites. 6. No GI tract obstruction.
[2025-07-30] MEDS: iohexol 350 mg/mL 500 mL Btl (per mL) IV (10:49)
== END 2025-07-30 10:17 | disposition home or self-care (01) ==
LOC: RAD 10:17
PROVIDERS: PCP Nurse Practitioner; Visit Provider Nurse Practitioner
DX: N13.722 Vesicoureteral-reflux with reflux nephropathy without hydroureter, bilateral (principal); N28.1 Cyst of kidney, acquired; I70.0 Atherosclerosis of aorta; Z98.890 Other specified postprocedural states
CPT/HCPCS: 74177

== ENCOUNTER 2025-08-27 09:55 | Outpatient (RCR) | payer OTHER, SELFPAY | END 2025-08-31 23:59 | disposition home or self-care (01) | LOC: SPT 09:55 | PROVIDERS: PCP Nurse Practitioner; Visit Provider Nurse Practitioner | DX: N81.12 Cystocele, lateral (principal); R35.0 Frequency of micturition | CPT/HCPCS: 97161 ==

== ENCOUNTER 2025-09-01 05:00 | Outpatient (RCR) | payer OTHER, SELFPAY | END 2025-09-30 23:59 | disposition home or self-care (01) | LOC: SPT 05:00 | PROVIDERS: PCP Nurse Practitioner; Visit Provider Nurse Practitioner | DX: N81.12 Cystocele, lateral (principal); R35.0 Frequency of micturition | CPT/HCPCS: 97110 ==

== ENCOUNTER 2025-09-05 11:22 | Outpatient (CLI) | payer OTHER, SELFPAY ==
--- NOTE | 2025-09-05 11:23 | MR_ITS ---
WS: [id number] MRI BRAIN WITH HIGH-RESOLUTION IMAGING THROUGH THE INTERNAL AUDITORY CANALS WITHOUT AND WITH CONTRAST HISTORY: rt sided tinnitus COMPARISON: 10/26/2024 TECHNIQUE: Multiplanar, multisequence imaging is performed through the brain. Additional 3 mm imaging performed in multiple planes through the internal auditory canal. Postcontrast imaging with 16 ml's of MultiHance. No acute intracranial hemorrhage, midline shift, edema or mass effect. There are a few scattered T2 and FLAIR signal hyperintensities throughout the white matter. Small vessel changes in the miko and cerebellum. Supratentorial white matter changes are also identified and stable. No progression or new infarct. No hemorrhage. Mild atrophy. No hippocampal atrophy. Ventricles and extra-axial spaces are normal. No inferior displacement of cerebellar tonsils. Clivus and pituitary gland are normal. Internal and external auditory canals: Unremarkable. Cranial nerves VII and VIII complexes: Unremarkable. No enhancement or mass. Cerebellopontine angles: Normal. Paranasal sinuses: Normal. Mastoid air cells: Normal. Calvarium and scalp: Normal. Visualized [place] and dural venous sinuses demonstrate no abnormality. MR/MR iac's wo/w con* [id number] IMPRESSION: 1. Unremarkable MRI internal auditory canals. No mass or mass effect. 2. Normal cerebellopontine angles. 3. Mild small vessel ischemic changes are stable since 10/26/2024. 4. No enhancing mass or vascular malformation.
[2025-09-05] MEDS: gadobenate dimeglumine 20 mL vial 16 ML IV (11:57)
== END 2025-09-05 11:23 | disposition home or self-care (01) ==
LOC: RAD 11:22
PROVIDERS: PCP Nurse Practitioner; Visit Provider Nurse Practitioner
DX: H93.11 Tinnitus, right ear (principal); I67.82 Cerebral ischemia; G31.89 Other specified degenerative diseases of nervous system; R93.0 Abnormal findings on diagnostic imaging of skull and head, not elsewhere classified
CPT/HCPCS: 70553; A9577

== ENCOUNTER 2025-10-01 05:00 | Outpatient (RCR) | payer OTHER, SELFPAY | END 2025-10-31 23:59 | disposition home or self-care (01) | LOC: SPT 05:00 | PROVIDERS: PCP Nurse Practitioner; Visit Provider Nurse Practitioner | DX: N81.12 Cystocele, lateral (principal); R35.0 Frequency of micturition | CPT/HCPCS: 97110 ==

== ENCOUNTER 2025-10-09 11:56 | Outpatient (CLI) | payer OTHER, SELFPAY ==
--- NOTE | 2025-10-09 12:03 | MRR_ITS ---
PROCEDURE INFORMATION: Exam: MR Neck Without and With Contrast Exam date and time: 10/09/2025 12:18 PM Age: 55 years old Clinical indication: Face pain; Facial pain/numbness, RT sided has. HX of migraines. ; Additional info: R periorbita/supraorbital/infra trochlear R tmj TECHNIQUE: Imaging protocol: Magnetic resonance imaging of the neck without and with contrast. Contrast material: OMNI; Contrast volume: 100 ml; Contrast route: INTRAVENOUS (IV); COMPARISON: MR iac's wo/w con* [id number] 09/05/2025 11:25 AM FINDINGS: Pharynx: Unremarkable. Larynx: Unremarkable. Salivary glands: Unremarkable. Vasculature: Unremarkable. Lymph nodes: No lymphadenopathy. Bones/joints: Unremarkable. Soft tissues: Unremarkable. MR/MR orbit face neck wo/w* [id number] IMPRESSION: Unremarkable MR Neck.
[2025-10-09] MEDS: gadobenate dimeglumine 20 mL vial 14 ML IV (12:50)
== END 2025-10-09 11:57 | disposition home or self-care (01) ==
LOC: RAD 11:57
PROVIDERS: PCP Nurse Practitioner; Visit Provider Student in an Organized Health Care Education/Training Program
DX: H57.11 Ocular pain, right eye (principal); M26.69 Other specified disorders of temporomandibular joint; R20.2 Paresthesia of skin; G43.909 Migraine, unspecified, not intractable, without status migrainosus
CPT/HCPCS: 70543